=== PATIENT | female | born 1995 | race Two or more races ===

== ENCOUNTER 2016-10-01 11:04 | Emergency (ER) | payer MEDICAID ==
[2016-10-01] MEDS ORDERED: OXYCODONE-ACETAMINOPHEN 5-325 MG TABLET PO ONE (12:15)
--- NOTE | 2016-10-01 12:17 | ER Document Report ---
ED Medical Screen (RME) - General Chief Complaint: Back Pain Stated Complaint: BACK PAIN Notes: This 21-year-old female patient comes emergency room by EMS from the [facility] today. She complains of pain all over her body. She states she was recently in [facility], where she was hospitalized for 4 days. She reports the episode started as a migraine headache and spread all over. She had MRIs, spinal taps, CAT scans, and was discharged with a diagnosis of questionable lupus with recommendation to follow-up for further evaluation. She decided to return to this area to further her workup, and she had a court appearance today. EMS gave her 50 g of fentanyl. I have greeted and performed a rapid initial assessment of this patient. A comprehensive ED assessment and evaluation of the patient, analysis of test results and completion of the medical decision making process will be conducted by additional ED providers. TRAVEL OUTSIDE OF THE [place] IN LAST 30 DAYS: No - Related Data Allergies/Adverse Reactions: No Known Allergies Allergy (Verified 10/01/16 11:11) Past Medical History Renal/ Medical History: Denies: Hx Peritoneal Dialysis Physical Exam - Vital signs Vitals: Temp Pulse Resp BP Pulse Ox 97.8 F 96 20 138/76 H 99 10/01/16 11:11 10/01/16 11:11 10/01/16 11:11 10/01/16 11:11 10/01/16 11:11 Course - Vital Signs Vital signs: Temp Pulse Resp BP Pulse Ox 97.8 F 96 20 138/76 H 99 10/01/16 11:11 10/01/16 11:11 10/01/16 11:11 10/01/16 11:11 10/01/16 11:11
[2016-10-01 12:47] LABS: HEMATOCRIT 39.5 % (36.0-47.0); HGB HCT DIFFERENCE -0.5; MEAN CORPUSCULAR HEMOGLOBIN 25.2 pg (27.0-33.4); MEAN CORPUSCULAR HGB CONC 32.8 g/dL (32.0-36.0); MEAN CORPUSCULAR VOLUME 77 fl (80-97); RED BLOOD COUNT 5.16 10^6/uL (3.72-5.28); RED CELL DISTRIBUTION WIDTH 15.4 % (11.5-14.0)
[2016-10-01 13:09] LABS: ALANINE AMINOTRANSFERASE 35 U/L (9-52); ALBUMIN 4.2 g/dL (3.5-5.0); ALKALINE PHOSPHATASE 78 U/L (38-126); ANION GAP 15 (5-19); ASPARTATE AMINO TRANSFERASE 22 U/L (14-36); BILIRUBIN,DIRECT 0.4 mg/dL (0.0-0.4); BILIRUBIN,TOTAL 0.5 mg/dL (0.2-1.3); BLOOD UREA NITROGEN 22 mg/dL (7-20); CALCIUM 9.4 mg/dL (8.4-10.2); CARBON DIOXIDE 27 mmol/L (22-30); CHLORIDE 99 mmol/L (98-107); GLUCOSE 79 mg/dL (75-110); SODIUM 140.7 mmol/L (137-145); TOTAL PROTEIN 7.2 g/dL (6.3-8.2)
[2016-10-01 13:10] LABS: BAND NEUTROPHILS % (MANUAL) 2 % (3-5); BASOPHILS % (MANUAL) 0 % (0-2); EOSINOPHILS % (MANUAL) 1 % (0-6); LYMPHOCYTES % (MANUAL) 24 % (13-45); TOTAL CELLS COUNTED 100
[2016-10-01 13:11] LABS: TOXIC GRANULATION 1+
[2016-10-01 13:12] LABS: ANISOCYTOSIS SLIGHT; HYPOCHROMASIA SLIGHT; MICROCYTOSIS SLIGHT; OVALOCYTES SLIGHT; POIKILOCYTOSIS 1+; POLYCHROMASIA SLIGHT; ROULEAUX 1+; TEAR DROP CELLS 1+
[2016-10-01] MEDS ORDERED: ONDANSETRON HCL INJ/PF 4 MG/2 ML SDV IV ONE (13:22)
[2016-10-01] MEDS ORDERED: METHYLPREDNISOLONE INJ 125 MG/2 ML SDV IV ONE (13:22)
[2016-10-01 13:23] LABS: ERYTHROCYTE SEDIMENTATION RATE 12 mm/hr (0-20)
[2016-10-01 13:31] LABS: AMORPHOUS SEDIMENT,URINE TRACE /HPF; APPEARANCE,URINE CLOUDY; BILIRUBIN,URINE NEGATIVE (NEGATIVE); GLUCOSE, URINE NEGATIVE (NEGATIVE); KETONES,URINE NEGATIVE (NEGATIVE); LEUKOCYTE ESTERASE,URINE MODERATE (NEGATIVE); NITRITE,URINE NEGATIVE (NEGATIVE); PROTEIN,URINE NEGATIVE (NEGATIVE); URINE SPECIFIC GRAVITY 1.023; UROBILINOGEN,URINE NEGATIVE mg/dL (<2.0)
--- NOTE | 2016-10-01 13:49 | ER Document Report ---
ED General - General Chief Complaint: Back Pain Stated Complaint: BACK PAIN Time seen by provider: 13:20 Mode of Arrival: Medic Information source: Patient Notes: 21-year-old female who complains of one week history of diffuse body aches nausea subjective fever and chills and generalized weakness. Patient reports symptoms began when she was in [facility] and she says she was admitted at a facility there with workup including MRI brain CT scan brain and lumbar puncture with no explanation for her symptoms having been found. She says she was discharged with no medications and was told she might have lupus but that she should follow with a physician in [place] for second opinion. Patient has no local physician and says she was in court today for traffic ticket and could not stay in court because of aching all over. She complained EMS personnel of back pain but she says her back does not hurt in any one location and does not hurt any worse than her chest abdomen arms legs or head. She claims generalized weakness everywhere but denies any focal numbness weakness to any extremity. She denies any difficulty with speech or swallowing. She does report photophobia which is been present for a week. She also reports abdominal bloating which began same time as the other symptoms. She reports no prior history of symptoms like this. She denies any rashes in says she's not been bitten by anything and does not know anyone else of symptoms like this. He reports poor appetite and thinks she lost some weight since his symptoms began but does not know how much. Physical Exam: General: Alert, appears uncomfortable no respiratory distress HEENT: Normocephalic. Atraumatic. PERRLA. Extraocular movements intact. Sclerae anicteric tympanogram members are canals clear Oropharynx clear. Extreme range moist Neck: Supple. Non-tender. No adenopathy no JVD no nuchal rigidity no carotid bruits Respiratory: No respiratory distress. Clear and equal breath sounds bilaterally. Cardiovascular: Regular rate and rhythm. No murmur PMI not displaced Abdominal: Normal Inspection. Soft, non-tender. No distension. Normal Bowel Sounds. Back: Non-tender. No deformity or step off. No specific tenderness along thoracic or lumbar spine Extremities: Moves all four extremities. No Kernig sign or Brudzinski sign Upper extremities: Normal inspection. Non-tender. Normal color. Normal ROM. Normal temperature. Lower extremities: Normal inspection. Non-tender. No edema. Normal color. Normal ROM. Normal temperature. No Homans sign bilaterally Neurological: Speech clear mentation normal retrieval specialist strength 5 out of 5 equal both upper tremors motor function 5 out of 5 equal both lower extremities reflexes 2 + and equal at biceps brachioradialis patella and Achilles Psychological: Normal affect. Tearful during exam Skin: Warm. Dry. Normal color. TRAVEL OUTSIDE OF THE [place] IN LAST 30 DAYS: No - Related Data Allergies/Adverse Reactions: No Known Allergies Allergy (Verified 10/01/16 11:11) Past Medical History - Social History Smoking Status: Never Smoker Family History: None Patient has suicidal ideation: No Patient has homicidal ideation: No - Past Medical History Cardiac Medical History: Reports: None Pulmonary Medical History: Reports: None Renal/ Medical History: Denies: Hx Peritoneal Dialysis Review of Systems - Review of Systems Constitutional: See HPI EENT: denies: Ear pain, Nose congestion, Nose discharge, Throat pain, Throat swelling, Mouth pain Cardiovascular: denies: Palpitations, Syncope Respiratory: denies: Cough, Short of breath, Wheezing Gastrointestinal: denies: Blood in vomit, Black stools, Rectal bleeding Genitourinary: denies: Burning, Dysuria, Frequency Female Genitourinary: No symptoms reported Musculoskeletal: See HPI Skin: denies: Rash Hematologic/Lymphatic: denies: Swollen glands Neurological/Psychological: See HPI Physical Exam - Vital signs Vitals: Temp Pulse Resp BP Pulse Ox 97.8 F 96 20 138/76 H 99 10/01/16 11:11 10/01/16 11:11 10/01/16 11:11 10/01/16 11:11 10/01/16 11:11 Course - Vital Signs Vital signs: Temp Pulse Resp BP Pulse Ox 97.8 F 96 20 138/76 H 99 10/01/16 11:11 10/01/16 11:11 10/01/16 11:11 10/01/16 11:11 10/01/16 11:11 - Laboratory Result Diagrams: 10/01/16 12:15 10/01/16 12:15 Laboratory results interpreted by me: 10/01/16 10/01/16 10/01/16 12:15 12:15 13:06 WBC 16.0 H MCV 77 L MCH 25.2 L RDW 15.4 H Band Neutrophils % 2 L Abs Neuts (Manual) 11.4 H BUN 22 H Ur Leukocyte Esterase MODERATE H
[2016-10-01] MEDS ORDERED: CEFTRIAXONE 1 GM/D5W RTU 50 ML IV ONE (14:07)
[2016-10-01] MEDS: NORMAL SALINE 1000 ML 1,000 ML IV PRN ×2 (15:04→15:14)
[2016-10-01 15:56] VITALS: BP 148/75
== END 2016-10-01 15:48 | disposition home or self-care (01) ==
LOC: ER 11:04
DX: N39.0 Urinary tract infection, site not specified (principal); R11.0 Nausea; R50.9 Fever, unspecified
CPT/HCPCS: 99284; 96375; 96365; 36415; 87070; 87086; 87880; 84703; 85025; 85652; 80053; 81001; 87804; 71020; J2930; J2405; J7030; J0696

== ENCOUNTER 2017-01-11 21:37 | Emergency (ER) | payer MEDICAID ==
[2017-01-11 23:00] LABS: ABSOLUTE BASOPHILS # (AUTO) 0.1 10^3/uL (0.0-0.2); ABSOLUTE EOSINOPHILS # (AUTO) 0.1 10^3/uL (0.0-0.6); ABSOLUTE LYMPHOCYTES (AUTO) 2.9 10^3/uL (0.5-4.7); ABSOLUTE MONOCYTES (AUTO) 0.6 10^3/uL (0.1-1.4); ABSOLUTE NEUT (AUTO) 4.8 10^3/uL (1.7-8.2); BASOPHILS % (AUTO) 0.7 % (0-2); EOSINOPHILS % (AUTO) 1.4 % (0-6); HEMATOCRIT 39.9 % (36.0-47.0); HEMOGLOBIN 13.1 g/dL (12.0-15.5); HGB HCT DIFFERENCE -0.6; LYMPHOCYTES % (AUTO) 34.7 % (13-45); MEAN CORPUSCULAR HEMOGLOBIN 25.2 pg (27.0-33.4); MEAN CORPUSCULAR HGB CONC 32.8 g/dL (32.0-36.0); MEAN CORPUSCULAR VOLUME 77 fl (80-97); RED BLOOD COUNT 5.19 10^6/uL (3.72-5.28); RED CELL DISTRIBUTION WIDTH 13.5 % (11.5-14.0); SEGMENTED NEUTROPHILS % (AUTO) 56.2 % (42-78); WHITE BLOOD COUNT 8.5 10^3/uL (4.0-10.5)
[2017-01-11 23:09] LABS: ALANINE AMINOTRANSFERASE 29 U/L (9-52); ALBUMIN 4.5 g/dL (3.5-5.0); ALKALINE PHOSPHATASE 76 U/L (38-126); ANION GAP 15 (5-19); ASPARTATE AMINO TRANSFERASE 14 U/L (14-36); BILIRUBIN,DIRECT 0.3 mg/dL (0.0-0.4); BILIRUBIN,TOTAL 0.3 mg/dL (0.2-1.3); BLOOD UREA NITROGEN 9 mg/dL (7-20); CALCIUM 9.9 mg/dL (8.4-10.2); CARBON DIOXIDE 24 mmol/L (22-30); CHLORIDE 103 mmol/L (98-107); CREATININE RESULT 0.61 mg/dL (0.52-1.25); GLUCOSE 83 mg/dL (75-110); SODIUM 142.1 mmol/L (137-145); TOTAL PROTEIN 8.2 g/dL (6.3-8.2)
[2017-01-11 23:37] LABS: APPEARANCE,URINE SLIGHTLY-CLOUDY; BILIRUBIN,URINE NEGATIVE (NEGATIVE); GLUCOSE, URINE NEGATIVE (NEGATIVE); KETONES,URINE NEGATIVE (NEGATIVE); LEUKOCYTE ESTERASE,URINE NEGATIVE (NEGATIVE); NITRITE,URINE NEGATIVE (NEGATIVE); PROTEIN,URINE NEGATIVE (NEGATIVE); URINE SPECIFIC GRAVITY 1.024; UROBILINOGEN,URINE NEGATIVE mg/dL (<2.0)
--- NOTE | 2017-01-12 00:42 | ER Document Report ---
ED General - General Chief Complaint: Rectal Bleeding Stated Complaint: RECTAL BLEEDING Time Seen by Provider: 01/12/17 00:40 Notes: Patient is a 21-year-old female with a past medical history who presents with concerns of lower abdominal pain and red stools. 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 She does describe her abdominal pain as being located in the suprapubic region and as a dull, aching, intermittent pain. Nothing improves or worsens the pain. States that she has had several red stool bowel movements today. No history of similar symptoms in the past. Denies any rectal trauma. She was referred by the nurse from the senior living facility. TRAVEL OUTSIDE OF THE [place] IN LAST 30 DAYS: No - Related Data Allergies/Adverse Reactions: No Known Allergies Allergy (Verified 10/01/16 11:11) Past Medical History - General Information source: Patient - Social History Smoking Status: Former Smoker Frequency of alcohol use: None Drug Abuse: None Lives with: Other - [facility] Family History: Reviewed & Not Pertinent Renal/ Medical History: Denies: Hx Peritoneal Dialysis Review of Systems - Review of Systems Notes: Constitutional: Negative for fever. HENT: Negative for sore throat. Eyes: Negative for visual changes. Cardiovascular: Negative for chest pain. Respiratory: Negative for shortness of breath. Gastrointestinal: Positive for abdominal pain and concern of rectal bleeding Genitourinary: Negative for dysuria. Musculoskeletal: Negative for back pain. Skin: Negative for rash. Neurological: Negative for headaches, weakness or numbness. 10 point ROS negative except as marked above and in HPI. Physical Exam - Vital signs Vitals: Temp Pulse Resp BP Pulse Ox 98.1 F 82 18 114/68 99 01/11/17 21:57 01/11/17 21:57 01/11/17 21:57 01/11/17 21:57 01/11/17 21:57 Interpretation: Normal Notes: PHYSICAL EXAMINATION: GENERAL: Well-appearing, well-nourished and in no acute distress. HEAD: Atraumatic, normocephalic. EYES: Pupils equal round and reactive to light, extraocular movements intact, sclera anicteric, conjunctiva are normal. ENT: nares patent, oropharynx clear without exudates. Moist mucous membranes. NECK: Normal range of motion, supple without lymphadenopathy LUNGS: Breath sounds clear to auscultation bilaterally and equal. No wheezes rales or rhonchi. HEART: Regular rate and rhythm without murmurs ABDOMEN: Soft, nontender, normoactive bowel sounds. No guarding, no rebound. No masses appreciated. Rectal exam: No masses or fissures. Brown stool. No gross blood. EXTREMITIES: Normal range of motion, no pitting or edema. No cyanosis. NEUROLOGICAL: No focal neurological deficits. Moves all extremities spontaneously and on command. PSYCH: Normal mood, normal affect. SKIN: Warm, Dry, normal turgor, no rashes or lesions noted. Course - Re-evaluation Re-evalutation: 01/12/17 00:41 Presentation of reported rectal bleeding and lower abdominal pain with no evidence of rectal bleeding on examination on stool guaiac or digital rectal examination. Patient has no focal abdominal tenderness on examination I do not suspect an acute appendicitis, bowel obstruction, bowel perforation, biliary pathology, acute pancreatitis, or related pathology. No evidence of anemia on CBC. I do not suspect a significant lower GI bleed or upper GI bleed based on history, vitals, normal hemoglobin, and patient's overall well appearance. The patient will be discharged home on conservative treatment recommendations as well as recommendations for close outpatient follow-up. Return precautions have been reviewed. - Vital Signs Vital signs: Temp Pulse Resp BP Pulse Ox 97.8 F 78 18 120/76 100 01/12/17 01:00 01/12/17 01:00 01/12/17 01:00 01/12/17 01:00 01/12/17 01:00 - Laboratory Result Diagrams: 01/11/17 22:35 01/11/17 22:35 Laboratory results interpreted by me: 01/11/17 22:35 MCV 77 L MCH 25.2 L Discharge - Discharge Clinical Impression: Rectal bleeding Abdominal pain Qualifiers: Abdominal location: lower abdomen, unspecified Qualified Code(s): R10.30 - Lower abdominal pain, unspecified Condition: Good Disposition: HOME, SELF-CARE Additional Instructions: You have been seen in the Emergency Department (ED) for abdominal pain. Your evaluation did not identify a clear cause of your symptoms but was generally reassuring. Please follow up with your doctor as soon as possible regarding today's emergent visit and the symptoms that are bothering you. Return to the ED if your abdominal pain worsens or fails to improve, you develop bloody vomiting, bloody diarrhea, you are unable to tolerate fluids due to vomiting, fever greater than 101, or other symptoms that concern you.
[2017-01-12 01:36] VITALS: BP 120/76
== END 2017-01-12 01:00 | disposition home or self-care (01) ==
LOC: ER 21:37
DX: K62.5 Hemorrhage of anus and rectum (principal); R10.30 Lower abdominal pain, unspecified; Z87.891 Personal history of nicotine dependence
CPT/HCPCS: 36415; 80053; 81001; 81025; 82272; 85025; 99284

== ENCOUNTER 2017-06-14 13:51 | Emergency (ER) | payer MEDICAID ==
[2017-06-14] MEDS ORDERED: ACETAMINOPHEN 325 MG TABLET PO ONE (14:16)
[2017-06-14] MEDS ORDERED: PROMETHAZINE HCL 25 MG TABLET PO ONE (14:16)
--- NOTE | 2017-06-14 14:16 | ER Document Report ---
ED Medical Screen (RME) - General Chief Complaint: Chest Congestion Stated Complaint: CHEST PAIN Time Seen by Provider: 06/14/17 14:15 Notes: Patient says that she was at work last night about 11 PM when she was suddenly hit by a severe, sharp pain in the center and left side of the chest going into the left shoulder and back. She says it hurts for her to take a deep breath or breathe, move the left arm, press on her chest, etc. She has not had this symptom before. Patient says that she has had a dry cough for the past week. Has not had any vomiting, but did have some diarrhea 4 times yesterday. Has not had any fever. Patient has a history of lupus, diagnosed in [place] couple of years ago. She supposed to be on medications, under the care of a doctor in [place], but has not followed up and is currently not taking any medicines for lupus or anything else. Patient denies unusual stress or strain or anxiety. On exam, patient is anxious. Chest sounds as if there are breath sounds bilaterally to me. TRAVEL OUTSIDE OF THE [place] IN LAST 30 DAYS: No - Related Data Allergies/Adverse Reactions: No Known Allergies Allergy (Verified 06/14/17 13:52) Past Medical History Renal/ Medical History: Denies: Hx Peritoneal Dialysis Physical Exam - Vital signs Vitals: Temp Pulse Resp BP Pulse Ox 98.6 F 78 18 118/61 100 06/14/17 13:54 06/14/17 13:54 06/14/17 13:54 06/14/17 13:54 06/14/17 13:54 Course - Vital Signs Vital signs: Temp Pulse Resp BP Pulse Ox 98.6 F 78 18 118/61 100 06/14/17 13:54 06/14/17 13:54 06/14/17 13:54 06/14/17 13:54 06/14/17 13:54
[2017-06-14 14:55] LABS: ABSOLUTE EOSINOPHILS # (AUTO) 0.2 10^3/uL (0.0-0.6); ABSOLUTE LYMPHOCYTES (AUTO) 2.5 10^3/uL (0.5-4.7); ABSOLUTE MONOCYTES (AUTO) 0.4 10^3/uL (0.1-1.4); ABSOLUTE NEUT (AUTO) 4.5 10^3/uL (1.7-8.2); BASOPHILS % (AUTO) 0.5 % (0-2); EOSINOPHILS % (AUTO) 2.7 % (0-6); HEMATOCRIT 44.7 % (36.0-47.0); HEMOGLOBIN 15.1 g/dL (12.0-15.5); HGB HCT DIFFERENCE 0.6; LYMPHOCYTES % (AUTO) 32.7 % (13-45); MEAN CORPUSCULAR HEMOGLOBIN 25.3 pg (27.0-33.4); MEAN CORPUSCULAR HGB CONC 33.8 g/dL (32.0-36.0); MEAN CORPUSCULAR VOLUME 75 fl (80-97); MONOCYTES % (AUTO) 5.6 % (3-13); RED BLOOD COUNT 5.98 10^6/uL (3.72-5.28); RED CELL DISTRIBUTION WIDTH 15.8 % (11.5-14.0); SEGMENTED NEUTROPHILS % (AUTO) 58.5 % (42-78); WHITE BLOOD COUNT 7.7 10^3/uL (4.0-10.5)
[2017-06-14 15:15] LABS: ALANINE AMINOTRANSFERASE 33 U/L (9-52); ALBUMIN 5.1 g/dL (3.5-5.0); ALKALINE PHOSPHATASE 91 U/L (38-126); ANION GAP 15 (5-19); ASPARTATE AMINO TRANSFERASE 24 U/L (14-36); BILIRUBIN,DIRECT 0.2 mg/dL (0.0-0.4); BILIRUBIN,TOTAL 0.5 mg/dL (0.2-1.3); BLOOD UREA NITROGEN 9 mg/dL (7-20); CALCIUM 9.5 mg/dL (8.4-10.2); CARBON DIOXIDE 25 mmol/L (22-30); CHLORIDE 104 mmol/L (98-107); CREATINE KINASE 159 U/L (30-135); GLUCOSE 73 mg/dL (75-110); LIPASE 58.6 U/L (23-300); POTASSIUM 4.4 mmol/L (3.6-5.0); SODIUM 144.3 mmol/L (137-145); TOTAL PROTEIN 8.3 g/dL (6.3-8.2)
--- NOTE | 2017-06-14 15:16 | RADIOLOGY REPORT (SQ) ---
EXAM DESCRIPTION: CHEST PA/LAT COMPLETED DATE/TIME: 06/14/2017 2:59 pm REASON FOR STUDY: Left upper anterior chest pain COMPARISON: 10/01/2016 EXAM PARAMETERS: NUMBER OF VIEWS: two views TECHNIQUE: Digital Frontal and Lateral radiographic views of the chest acquired. RADIATION DOSE: NA LIMITATIONS: none FINDINGS: LUNGS AND PLEURA: No opacities, masses or pneumothorax. No pleural effusion. MEDIASTINUM AND HILAR STRUCTURES: No masses or contour abnormalities. HEART AND VASCULAR STRUCTURES: Heart normal size. No evidence for failure. BONES: No acute findings. Mild scoliosis. HARDWARE: None in the chest. OTHER: No other significant finding. IMPRESSION: MILD SCOLIOSIS. NO ACUTE CARDIOPULMONARY PROCESS. TECHNICAL DOCUMENTATION: JOB ID: [id number] [employer]- All Rights Reserved
[2017-06-14 15:25] LABS: CREATINE KINASE MB < 0.22 ng/mL (<4.55); TROPONIN I < 0.012 ng/mL
[2017-06-14] MEDS ORDERED: KETOROLAC TROMETHAMINE 60 MG/2 ML SDV IM ONE (15:37)
[2017-06-14] MEDS ORDERED: LIDOCAINE 5% (700 MG) TRANSDERMAL ADH..PATCH TP ONE (15:38)
--- NOTE | 2017-06-14 15:42 | ER Document Report ---
ED General - General Chief Complaint: Chest Congestion Stated Complaint: CHEST PAIN Time Seen by Provider: 06/14/17 14:15 TRAVEL OUTSIDE OF THE [place] IN LAST 30 DAYS: No - HPI Patient complains to provider of: Left-sided chest pain Notes: Patient complaining of left-sided chest pain patient's chest pain left upper chest goes around to the left scapular region. Patient states during 11:00 last night. 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 Patient states pain is continued no nausea no vomiting no fevers or chills. Patient's states pain with movement. Denies recent travel denies control denies any other medical etiologies. Patient resting comfortably upon my evaluation. - Related Data Allergies/Adverse Reactions: No Known Allergies Allergy (Verified 06/14/17 13:52) Past Medical History - Social History Smoking Status: Current Every Day Smoker Frequency of alcohol use: Social Drug Abuse: None Family History: Reviewed & Not Pertinent Patient has suicidal ideation: No Patient has homicidal ideation: No Renal/ Medical History: Denies: Hx Peritoneal Dialysis Review of Systems - Review of Systems Constitutional: No symptoms reported EENT: No symptoms reported Cardiovascular: Chest pain Respiratory: No symptoms reported Gastrointestinal: No symptoms reported Genitourinary: No symptoms reported Female Genitourinary: No symptoms reported Musculoskeletal: No symptoms reported Skin: No symptoms reported Hematologic/Lymphatic: No symptoms reported Neurological/Psychological: No symptoms reported Physical Exam - Vital signs Vitals: Temp Pulse Resp BP Pulse Ox 98.6 F 78 18 118/61 100 06/14/17 13:54 06/14/17 13:54 06/14/17 13:54 06/14/17 13:54 06/14/17 13:54 Interpretation: Normal - General General appearance: Appears well, Alert - HEENT Head: Normocephalic, Atraumatic Eyes: Normal Pupils: PERRL - Respiratory Respiratory status: No respiratory distress Chest status: Tender - Pain reproduced with palpation of the left upper chest muscles. Breath sounds: Normal Chest palpation: Normal - Cardiovascular Rhythm: Regular Heart sounds: Normal auscultation Murmur: No - Abdominal Inspection: Normal Distension: No distension Bowel sounds: Normal Tenderness: Nontender Organomegaly: No organomegaly - Back Back: Normal, Tender - Tenderness palpation of the supraspinatus infraspinatus muscle of the scapula on the left side. - Extremities General upper extremity: Normal inspection, Nontender, Normal color, Normal ROM , Normal temperature General lower extremity: Normal inspection, Nontender, Normal color, Normal ROM , Normal temperature, Normal weight bearing. No: Chante's sign - Neurological Neuro grossly intact: Yes Cognition: Normal Orientation: AAOx4 Ezequiel Coma Scale Eye Opening: Spontaneous Ezequiel Coma Scale Verbal: Oriented Ezequiel Coma Scale Motor: Obeys Commands [place] Coma Scale Total: 15 Speech: Normal Motor strength normal: LUE, RUE, LLE, RLE Sensory: Normal - Psychological Associated symptoms: Normal affect, Normal mood - Skin Skin Temperature: Warm Skin Moisture: Dry Skin Color: Normal Course - Re-evaluation Re-evalutation: 06/14/17 17:28 Laboratory studies negative for any critical pathology. Patient's EKG negative for critical pathology. Patient's chest pain more likely muscle skeletal. Will treat with antifungal medications patient is to continue take Tylenol patient was discharged home - Vital Signs Vital signs: Temp Pulse Resp BP Pulse Ox 97.8 F 78 14 115/67 100 06/14/17 15:48 06/14/17 13:54 06/14/17 15:48 06/14/17 15:48 06/14/17 15:48 - Laboratory Result Diagrams: 06/14/17 14:30 06/14/17 14:30 Laboratory results interpreted by me: 06/14/17 06/14/17 14:30 14:30 RBC 5.98 H MCV 75 L MCH 25.3 L RDW 15.8 H Glucose 73 L Creatine Kinase 159 H Total Protein 8.3 H Albumin 5.1 H Discharge - Discharge Clinical Impression: Chest wall pain Condition: Good Disposition: HOME, SELF-CARE Instructions: Anti-Inflammatory Medication ([facility]), Chest Wall Pain ([facility]) Additional Instructions: Your examination today is consistent with chest wall pain no muscle strain. Your laboratory studies do not show any signs of cardiac ischemia or clots within your lungs infection or pneumonia. Please take medication as prescribed drink plenty water to stay hydrated follow-up with your primary care physician. I recommend taking Tylenol along with the medication prescribed to help with chest wall pain. Prescriptions: Ketorolac Tromethamine [Toradol 10 mg Tablet] 10 mg PO Q8HP PRN #20 tablet PRN Reason: Forms: Return to Work
[2017-06-14 16:00] VITALS: BP 115/67
--- NOTE | 2017-06-14 18:15 | EKG REPORT ---
SEVERITY:- NORMAL ECG - SINUS RHYTHM : Confirmed by: Vickey Bedolla MD 14-Jun-2017 18:14:46
== END 2017-06-14 16:01 | disposition home or self-care (01) ==
LOC: ER 13:51
DX: R07.89 Other chest pain (principal); R09.89 Other specified symptoms and signs involving the circulatory and respiratory systems; F17.200 Nicotine dependence, unspecified, uncomplicated
CPT/HCPCS: 93005; 99284; 96372; 36415; 82553; 82550; 83690; 84703; 85025; 80053; 84484; 85379; 71020; 93010; J3490 ×3; J1885